=== PATIENT | female | born 1970 | race Two or more races ===

== ENCOUNTER 2017-12-29 12:00 | Inpatient (IN) | payer OTHER ==
[~2017-12-29] VITALS: Ht 180.3 cm; Wt 92.1 kg
--- NOTE | 2017-12-29 12:43 | NUR ---
sandy from heart to heart. patient c/o increased sob for 3 weeks and swelling in ble. said she was at [facility] for about a month and d/c'd to heart to heart recently. room air saturation 99% refusing nasal cannula. at bedside. patient hd since 1 year with right cw hd cath present.
[2017-12-29] MEDS ORDERED: IPRATROPIUM NEB FS 0.5 MG/2.5 ML AMPUL.NEB NEB ONE (13:00)
[2017-12-29] MEDS ORDERED: ALBUTEROL FS 2.5 MG/3 ML VIAL.NEB NEB ONE (13:00)
--- NOTE | 2017-12-29 13:08 | NUR ---
PT REFUSING OXYGEN. ROOM AIR STABLE 98%
--- NOTE | 2017-12-29 13:15 | NUR ---
multiple attempts for saline lock iv. patient states "i need a picc line for iv" as she is a hard stick
[2017-12-29 13:37] LABS: BASOPHILS % (AUTO) 0.5 % (0.0-2.0); EOSINOPHILS % (AUTO) 4.2 % (0.0-6.0); HEMATOCRIT 33 % (33-45); HEMOGLOBIN 10.8 g/dL (11.5-14.8); LYMPHOCYTES # (AUTO) 2.2 /CMM (0.8-4.8); LYMPHOCYTES % (AUTO) 40.9 % (20.0-44.0); MEAN CORPUSCULAR HGB CONC 33 g/dl (31.0-36.0); MEAN CORPUSCULAR VOLUME 96 fL (82-100); MONOCYTES # (AUTO) 0.4 /CMM (0.1-1.30); MONOCYTES % (AUTO) 6.9 % (2.0-12.0); NEUTROPHILS # (AUTO) 2.6 /CMM (1.8-8.9); NEUTROPHILS % (AUTO) 47.5 % (43.0-81.0); PLATELET COUNT (AUTO) 151 /CMM (150-450); RDW COEFFICIENT OF VARIATION 20.5 (11.5-15.0); RED BLOOD CELL COUNT(AUTO) 3.47 MIL/uL (4.0-5.2); WHITE BLOOD COUNT (AUTO) 5.4 K/uL (4.3-11.0)
[2017-12-29 13:42] LABS: CALCIUM, SERUM 9.7 mg/dL (8.5-10.1); CREATININE 4.4 mg/dL (0.6-1.3); POTASSIUM 4.3 mmol/L (3.5-5.1)
--- NOTE | 2017-12-29 13:44 | NUR ---
aware of patient htn. per patient hd schedule m/w/f
[2017-12-29 13:48] LABS: INR 0.99 (0.85-1.15)
[2017-12-29 13:53] LABS: TROPONIN I 0.648 ng/mL (0.00-0.056)
[2017-12-29 13:55] LABS: ALBUMIN 2.4 g/dL (3.4-5.0); BILIRUBIN,DIRECT 0.1 mg/dL (0.0-0.2); BILIRUBIN,TOTAL 0.4 mg/dL (0.2-1.0); TOTAL PROTEIN, SERUM 8.4 g/dL (6.4-8.2)
--- NOTE | 2017-12-29 13:56 | NUR ---
troponin 0/648 relayed to
--- NOTE | 2017-12-29 14:06 | NUR ---
RT PT IS AWAKE AND ALERT. PT IS REFUSING HHN TX DESPITE BEING EDUCATED ON BENEFITS OF THE RX. PT IS AWARE AND STILL REFUSING HHN TX. NO RESPIRATORY DISTRESS NOTED AT THIS TIME. NADIA SR NOTIFIED AND AWARE.
--- NOTE | 2017-12-29 14:48 | NUR ---
PT IS ASSIGNED TO [facility]#: [id number]
[2017-12-29] MEDS ORDERED: ASPI-1169 PO (15:39)
[2017-12-29] MEDS ORDERED: CALC667C6 PO (15:39)
[2017-12-29] MEDS ORDERED: FOLI0.8T2 PO (15:39)
[2017-12-29] MEDS ORDERED: VITA1TAB18 PO (15:39)
[2017-12-29] MEDS ORDERED: ATOR10TA PO (15:40)
[2017-12-29] MEDS ORDERED: RALT400T PO (15:40)
[2017-12-29] MEDS ORDERED: LACT1CAP69 PO (15:40)
[2017-12-29] MEDS ORDERED: CARB200T PO (15:40)
[2017-12-29] MEDS ORDERED: ISOS30TA6 PO (15:40)
[2017-12-29] MEDS ORDERED: ONDA4TAB10 PO (15:40)
[2017-12-29] MEDS ORDERED: DOCU250C14 PO (15:40)
[2017-12-29] MEDS ORDERED: TRAM50TA2 PO (15:40)
[2017-12-29] MEDS ORDERED: LAMI150T PO (15:40)
[2017-12-29] MEDS ORDERED: INSU100V27 SQ (15:40)
[2017-12-29] MEDS ORDERED: IPRA3AMP23 IH (15:40)
[2017-12-29] MEDS ORDERED: DICL50TA9 PO (15:40)
[2017-12-29] MEDS ORDERED: SENN-167 PO (15:40)
[2017-12-29] MEDS ORDERED: CLON0.1T PO (15:40)
[2017-12-29] MEDS ORDERED: BENA10TA9 PO (15:40)
[2017-12-29] MEDS ORDERED: OMEP20CA10 PO (15:40)
[2017-12-29] MEDS ORDERED: ABAC300T PO (15:40)
[2017-12-29] MEDS ORDERED: LEVO50TA8 PO (15:40)
[2017-12-29] MEDS ORDERED: HYDR-552 PO (15:40)
[2017-12-29] MEDS ORDERED: BLOO-668 IN (15:40)
[2017-12-29] MEDS ORDERED: LACT1TAB13 PO (15:40)
[2017-12-29] MEDS ORDERED: LEVE500T9 PO (15:40)
--- NOTE | 2017-12-29 17:37 | NUR ---
REPORT GIVEN TO NADIA PALUMBO FOR TELE 101.
--- NOTE | 2017-12-29 17:47 | NUR ---
RECEIVED REPORT FROM ER NURSE REMBERTO FOR NEW ADMISSION
--- NOTE | 2017-12-29 18:26 | NUR ---
RN BECKY NURSE RECEIVED PATIENT ON UNIT @ [address] ED[address] JO NOTIFIED.
[2017-12-29 18:39] VITALS: BP 160/101
--- NOTE | 2017-12-29 18:42 | NUR ---
RN BECKY NOTES RECEIVED PATIENT FROM ED 47 YR OLD FEMALE FROM HEART TO HEART C/O SOB X 3WEEKS. PATIENT HAS LONG HX ADMITTING DIAGNOSES OF PE. PATIENT A/O X3 NO SIGNS OR SYMPTOMS OF RESPIRATORY DISTRESS ON ROOM REFUSES OXYGEN OR ACUTE PAIN. ED UNABLE TO ACCESS AN IV LINE PATIENT STATES SHE IS A HARD STICK AND USUALLY GETS A PICC NO IV MEDICATION NEEDED A THIS TIME. SKIN DRY (L) FOOT WOUND DRESSED CLEAN WITH NO DRAINAGE NOTED. (R) CHEST JEREMIAH CATH WITH DRESSING INTACT. LAST HD 12/28 OUTPUT UNKNWN.B/P TAKEN MANUALLY 160/101 PATIENT IS TEARFUL AND STATES SHE DOES NOT WANT TO BE HERE BUT COOPERATIVE. DR. JO AWARE OF PATIENT ARRIVAL AND WILL BE ON THE UNIT IN 30 MINUTES TO ENDORSE ORDERS. BED IN LOW POSITION ALL SAFETY PRECAUTIONS IN PLACE. CALL LIGHT WITHIN REACH WILL ENDORSE TO [facility]
--- NOTE | 2017-12-29 19:24 | NUR ---
RN BECKY CLOSING NOTES END OF SHIFT REPORT GIVEN TO
[2017-12-29] MEDS ORDERED: ONDANSETRON HCL/PF 4 MG/2 ML VIAL IVP PRN (19:30)
[2017-12-29] MEDS ORDERED: ZOLPIDEM TARTRATE 5 MG TABLET PO PRN (19:30)
[2017-12-29] MEDS ORDERED: ACETAMINOPHEN 325 MG TABLET PO PRN (19:30)
[2017-12-29] MEDS ORDERED: DEXTROSE 50%-WATER 50 ML DISP.SYRIN IV PRN (19:30)
[2017-12-29] MEDS ORDERED: HYDROCODONE/APAP 5/325MG 1 EACH TABLET PO PRN (19:30)
[2017-12-29 20:00] VITALS: BP 160/101
[2017-12-29] MEDS ORDERED: BUMETANIDE INJ 0.25 MG/ML VIAL IV ONE (20:30)
--- NOTE | 2017-12-29 20:34 | NUR ---
PT ADVISED TO DO ECHO TEST LATER SINCE SHE CANT LIE DOWN IN BED DUE TO BREATHING DIFFICULTY.
[2017-12-29] MEDS ORDERED: HEPARIN SODIUM, PORCINE 5000 UNITS/1 ML VIAL SQ SCH (21:00)
[2017-12-29] MEDS: HEPARIN SODIUM, PORCINE 5000 UNITS/1 ML VIAL SQ SCH (21:58)
--- NOTE | 2017-12-29 22:05 | NUR ---
INITIAL ECHO FINDINGS SHOWED EF 35%~, SMALL PER. EFFUSION, W/ MODERATE PULM HTN 55mmHg. ADVISED NADIA NOGUERA OF PRELIMINARY RESULTS.
[2017-12-29] MEDS: BLOOD SUGAR DIAGNOSTIC 1 EACH STRIP IN SCH (22:38)
[2017-12-29] MEDS: INSULIN REGULAR, HUMAN 100 UNIT/ML 3 ML VIAL SQ PRN (22:39)
[2017-12-30] VITALS: BP 175/90
--- NOTE | 2017-12-30 02:54 | NUR ---
RN NOTES NOTIFIED DR YARED STALLINGS REGARDING NEW TROPONIN RESULT OF 0.657 WITH NO NEW ORDERS AT THIS TIME
[2017-12-30 04:00] VITALS: BP 165/90
--- NOTE | 2017-12-30 07:51 | NUR ---
RN NOTE: PATIENT RECEIVED ALERT AWAKE ORIENTED X 3. ON 4LPM O2 VIA MASK, NO BREATHING DISTRESS NOTED. NOTED C/O PAIN BILATERAL LOWER LEG/FEET, OFFERED NORCO, REFUSED FOR NOW, WILL CONTINUE TO ASSESS. SAFETY MEASURES OBSERVED. ENCOURAGE TO USE CALL LIGHT FOR ASSISTANCE. WILL CONTINUE TO MONITOR.
[2017-12-30 08:00] VITALS: BP_SYST 184; BP_DIAS 108; BP_DIAS 99
[2017-12-30] MEDS: BLOOD SUGAR DIAGNOSTIC 1 EACH STRIP IN SCH ×4 (08:28→21:52)
[2017-12-30] MEDS: HEPARIN SODIUM, PORCINE 5000 UNITS/1 ML VIAL SQ SCH ×2 (08:30→21:00)
[2017-12-30] MEDS: INSULIN REGULAR, HUMAN 100 UNIT/ML 3 ML VIAL SQ PRN ×3 (08:31→21:59)
[2017-12-30] MEDS ORDERED: AMLODIPINE BESYLATE 5 MG TABLET PO ONE (09:00)
[2017-12-30] MEDS: CARVEDILOL 6.25 MG TABLET PO SCH ×2 (10:06→21:49)
[2017-12-30] MEDS: hydrALAZINE HCL 50 MG TABLET PO SCH ×3 (10:06→17:25)
[2017-12-30] MEDS: ASPIRIN 81 MG TAB.CHEW PO SCH (10:06)
[2017-12-30] MEDS: NITROGLYCERIN 30 GM TUBE TP SCH ×2 (10:07→21:52)
[2017-12-30] MEDS: DICLOFENAC SODIUM 25 MG TABLET.DR PO SCH ×2 (11:00→17:26)
[2017-12-30] MEDS: LACTOBACILLUS RHAMNOSUS GG 1 EACH CAP.SPRINK PO SCH ×2 (11:00→17:25)
[2017-12-30] MEDS ORDERED: TRAMADOL HCL 50 MG TABLET PO PRN (11:00)
[2017-12-30] MEDS: SENNOSIDES 8.6 MG TABLET PO SCH ×2 (11:00→17:26)
[2017-12-30] MEDS ORDERED: ISOSORBIDE MONONITRATE (30MG) 30 MG TAB.SR.24H PO SCH (11:00)
[2017-12-30] MEDS: LEVETIRACETAM SOL (5 ML) 100 MG/ML UDC PO SCH ×3 (11:00→21:00)
[2017-12-30] MEDS: DOCUSATE SODIUM 250 MG CAPSULE PO SCH ×2 (11:00→17:23)
[2017-12-30] MEDS ORDERED: CLONIDINE HCL 0.1 MG TABLET PO PRN (11:00)
[2017-12-30] MEDS: BENAZEPRIL HCL 10 MG TABLET PO SCH (11:00)
[2017-12-30] MEDS: CARBAMAZEPINE 200 MG TABLET PO SCH ×2 (11:00→22:10)
[2017-12-30] MEDS: PANTOPRAZOLE 40 MG TABLET.DR PO SCH (11:00)
[2017-12-30 12:00] VITALS: BP 137/91
[2017-12-30] MEDS: VIT B CMPLX 3/FA/VIT C/BIOTIN 1 TAB TABLET PO SCH (12:41)
[2017-12-30] MEDS: CALCIUM ACETATE 667 MG TABLET PO SCH ×3 (12:43→17:23)
[2017-12-30] MEDS: LAMIVUDINE (150MG) 150 MG TABLET PO SCH (12:44)
[2017-12-30] MEDS: ABACAVIR SULFATE 300 MG TABLET PO SCH ×2 (12:44→17:23)
[2017-12-30] MEDS: RALTEGRAVIR POTASSIUM 400 MG TABLET PO SCH ×2 (12:45→17:00)
[2017-12-30 13:36] LABS: CALCIUM, SERUM 9.5 mg/dL (8.5-10.1); CREATININE 5.1 mg/dL (0.6-1.3); MAGNESIUM 2.3 mg/dL (1.8-2.4); PHOSPHORUS 4.8 mg/dL (2.5-4.9); POTASSIUM 4.8 mmol/L (3.5-5.1)
--- NOTE | 2017-12-30 15:45 | NUR ---
RN NOTE: PATIENT ENDORSED TO JAREN RN DUE TO ASSIGNMENT CHANGE. REPORT GIVEN AT BEDSIDE.
[2017-12-30 16:00] VITALS: BP 159/94
--- NOTE | 2017-12-30 16:00 | NUR ---
RN NOTES PATIENT S/P DIALYSIS. ABLE TO TOLERATE THE PROCEDURE WELL. NO SIGN OF DISTRESS NOTED. 3000 LITER TAKEN OUT OF THE PATIENT. BP AT 132/78, HR AT 69 TEMP AT 98.0. NO SIGN OF RESPIRATORY DISTRESS NOTED
[2017-12-30 18:04] LABS: HEMATOCRIT 32 % (33-45); HEMOGLOBIN 9.8 g/dL (11.5-14.8); MEAN CORPUSCULAR HGB CONC 31 g/dl (31.0-36.0); MEAN CORPUSCULAR VOLUME 98 fL (82-100); PLATELET COUNT (AUTO) 113 /CMM (150-450); RDW COEFFICIENT OF VARIATION 21.6 (11.5-15.0); RED BLOOD CELL COUNT(AUTO) 3.21 MIL/uL (4.0-5.2)
[2017-12-30 18:37] LABS: BAND % (MANUAL) 11 % (0.0-5.0); LYMPHOCYTES % (MANUAL) 23 % (16-48); MONOCYTES % (MANUAL) 6 % (0-11.0); NEUTROPHILS % (MANUAL) 60 (42-76)
--- NOTE | 2017-12-30 19:35 | NUR ---
RN NOTES ENDORSED PATIENT FOR CONTINUITY OF CARE. PATIENT REMAINED STABLE FOR THE ENTIRE SHIFT. NO ACUTE CHANGES NOTED. ALL NURSING NEEDS ATTENDED AND MET. CALL LIGHT WITHIN REACH AT ALL TIME. SAFETY MEASURES KEPT IN PLACE Addendum: 12/31/17 at 0915 by JAREN RON RN RN NOTES RALTEGLAVIR 400 MG WAS NOT ADMINISTERED TO THE PATIENT DUE TO UNAVAILABILITY AT THE PHARMACY.
[2017-12-30 20:00] VITALS: BP_SYST 158; BP_SYST 159; BP_DIAS 84; BP_DIAS 94
--- NOTE | 2017-12-30 20:00 | NUR ---
RN INITIAL NOTES RECEIVED PT RESTING IN BED. A & 0X3. MULTIPLE SKIN WOUNDS. RIGHT CW JEREMIAH CATH FOR HD. ENDORSED THAT PT WOULD POSSIBLE BE RECEIVING HD TOMORROW. PT STATES SHE WILL BE DISCHARGED TOMORROW OR LEAVING AMA. ALL SAFETY PRECAUTIONS TAKEN. WILL CONT TO MONITOR.
[2017-12-30] MEDS ORDERED: ATORVASTATIN 10 MG TABLET PO SCH (22:00)
[2017-12-31 04:00] VITALS: BP 152/85
--- NOTE | 2017-12-31 06:11 | NUR ---
RN CLOSING NOTES PATIENT REMAINED STABLE FOR THE ENTIRE SHIFT. NO ACUTE CHANGES NOTED. ALL NEEDS MET. ALL MEDICATION GIVEN. CALL LIGHT WITHIN REACH AT ALL TIME. SAFETY MEASURES KEPT IN PLACE. WILL ENDORSE TO AM SHIFT.
[2017-12-31 06:24] LABS: EOSINOPHILS % (AUTO) 4.2 % (0.0-6.0); HEMATOCRIT 28 % (33-45); HEMOGLOBIN 9.1 g/dL (11.5-14.8); LYMPHOCYTES % (AUTO) 39.7 % (20.0-44.0); MEAN CORPUSCULAR HGB CONC 32 g/dl (31.0-36.0); MEAN CORPUSCULAR VOLUME 98 fL (82-100); MONOCYTES # (AUTO) 0.5 /CMM (0.1-1.30); MONOCYTES % (AUTO) 10.3 % (2.0-12.0); NEUTROPHILS # (AUTO) 2.3 /CMM (1.8-8.9); NEUTROPHILS % (AUTO) 45.8 % (43.0-81.0); PLATELET COUNT (AUTO) 97 /CMM (150-450); RDW COEFFICIENT OF VARIATION 21.3 (11.5-15.0); RED BLOOD CELL COUNT(AUTO) 2.88 MIL/uL (4.0-5.2)
[2017-12-31 06:38] LABS: CALCIUM, SERUM 8.7 mg/dL (8.5-10.1); CREATININE 4.9 mg/dL (0.6-1.3); MAGNESIUM 2.2 mg/dL (1.8-2.4); PHOSPHORUS 4.8 mg/dL (2.5-4.9); POTASSIUM 4.8 mmol/L (3.5-5.1)
--- NOTE | 2017-12-31 07:00 | NUR ---
MS RN INITIAL NOTES PT SITTING ON SIDE OF BED. A/OX4. PT IS ON RA SAT AT 92%. PT IS REFUSING TO USE SUPP OXYGEN. DOES NOT APPEAR TO BE IN DISTRESS. NO COMPLAINT OF PAIN. PT IS INSISTENT ON LEAVING HOSPITAL THIS MORNING. SAFETY PRECAUTIONS IN PLACE. CALL LIGHT IN REACH. WILL CONT TO MONITOR.
[2017-12-31] MEDS ORDERED: LEVOTHYROXINE SODIUM 50 MCG TABLET PO SCH (07:30)
[2017-12-31 07:58] LABS: BAND % (MANUAL) 2 % (0.0-5.0); EOSINOPHILS % (MANUAL) 5 % (0-4); LYMPHOCYTES % (MANUAL) 42 % (16-48); MONOCYTES % (MANUAL) 6 % (0-11.0); NEUTROPHILS % (MANUAL) 45 (42-76)
[2017-12-31 08:00] VITALS: BP 156/70
[2017-12-31] MEDS: PANTOPRAZOLE 40 MG TABLET.DR PO SCH (08:02)
[2017-12-31] MEDS: CALCIUM ACETATE 667 MG TABLET PO SCH ×2 (08:02→12:04)
[2017-12-31] MEDS: BLOOD SUGAR DIAGNOSTIC 1 EACH STRIP IN SCH ×2 (08:54→12:08)
[2017-12-31] MEDS ORDERED: ASPIRIN 81 MG TAB.CHEW PO SCH (09:00)
[2017-12-31] MEDS: HEPARIN SODIUM, PORCINE 5000 UNITS/1 ML VIAL SQ SCH (09:00)
[2017-12-31] MEDS: CARVEDILOL 6.25 MG TABLET PO SCH (09:00)
[2017-12-31] MEDS: LEVETIRACETAM SOL (5 ML) 100 MG/ML UDC PO SCH (09:00)
[2017-12-31] MEDS: BENAZEPRIL HCL 10 MG TABLET PO SCH (09:00)
--- NOTE | 2017-12-31 09:00 | NUR ---
MS RN NOTES PT REFUSED TO TAKE MEDS. STATED "I WILL LET YOU KNOW WHEN I'M READY TO TAKE IT". PLACED MEDS IN CASSETTE.
--- NOTE | 2017-12-31 09:00 | NUR ---
MS RN NOTES PT IS HAVING DIALYSIS TODAY. HELD BP MEDS.
[2017-12-31] MEDS: RALTEGRAVIR POTASSIUM 400 MG TABLET PO SCH (09:09)
[2017-12-31] MEDS: VIT B CMPLX 3/FA/VIT C/BIOTIN 1 TAB TABLET PO SCH (09:11)
[2017-12-31] MEDS: DICLOFENAC SODIUM 25 MG TABLET.DR PO SCH (09:11)
[2017-12-31] MEDS: LACTOBACILLUS RHAMNOSUS GG 1 EACH CAP.SPRINK PO SCH (09:12)
[2017-12-31] MEDS: ASPIRIN 81 MG TAB.CHEW PO SCH (09:12)
[2017-12-31] MEDS: DOCUSATE SODIUM 250 MG CAPSULE PO SCH (09:13)
[2017-12-31] MEDS: INSULIN REGULAR, HUMAN 100 UNIT/ML 3 ML VIAL SQ PRN ×2 (09:16→12:18)
[2017-12-31] MEDS: SENNOSIDES 8.6 MG TABLET PO SCH (09:17)
[2017-12-31] MEDS: LAMIVUDINE (150MG) 150 MG TABLET PO SCH (09:22)
[2017-12-31] MEDS: ABACAVIR SULFATE 300 MG TABLET PO SCH (09:23)
--- NOTE | 2017-12-31 09:25 | NUR ---
WOUND CARE CONSULT: PT PRESENTS WITH SACRAL SCARRING, PERINEAL/INNER THIGH EDEMA BLISTERS AND BILATERAL HEEL ESCHARS, PRESENT ON ADMISSION. RECOMMEND DPM CONSULT. RECOMMENDATIONS MADE FOR SKIN PROTECTION AND WOUND CARE. DISCUSSED WITH NURSING STAFF. WILL SEE PRN. ESCAMILLA IN AGREEMENT WITH PLAN OF CARE. Addendum: 12/31/17 at 0927 by WADE CHAPPELL WNDNU Amended: Links added.
--- NOTE | 2017-12-31 09:26 | NUR ---
MS RN NOTES OFFERED PT AM MEDS. PT STATED: "I WON'T TAKE THE MEDS UNTIL YOU TALK TO THE DOCTOR ABOUT GOING HOME".
[2017-12-31] MEDS ORDERED: ISOSORBIDE DINITRATE (20MG) 20 MG TABLET PO SCH (09:30)
[2017-12-31] MEDS: CARBAMAZEPINE 200 MG TABLET PO SCH (11:04)
--- NOTE | 2017-12-31 11:35 | NUR ---
MS RN NOTES PT REFUSED DIALYSIS. MORNING BP MEDS WERE NOT GIVEN DUE TO HD APPT TODAY. PT'S BP NOW 164/94. IS WILLING TO TAKE BP MEDS NOW.
[2017-12-31 12:00] VITALS: BP 164/94
[2017-12-31 12:04] VITALS: BP 164/94
[2017-12-31] MEDS ORDERED: hydrALAZINE HCL 50 MG TABLET PO SCH (13:00)
[2017-12-31] MEDS ORDERED: ASPI-1169 PO (13:11)
[2017-12-31] MEDS ORDERED: CARV6.252 PO (13:11)
[2017-12-31] MEDS ORDERED: ISOS20TA8 PO (13:11)
[2017-12-31] MEDS ORDERED: HYDR-4077 PO (13:11)
--- NOTE | 2017-12-31 17:00 | NUR ---
MS RN D/C NOTES PT LEFT WITH AMBULANCE CREW AND . PT'S IV AND ID BAND REMOVED. BELONGINGS LIST AND DISCHARGE INSTRUCTIONS SIGNED FOR. PT GIVEN NEW PRESCRIPTIONS LIST AND DISCHARGE INSTRUCTIONS.
== END 2017-12-31 17:00 | DRG 194 ==
LOC: ER 12:03 → TELE 16:48 → TELE1 18:24 → MEDSG1 12-30 14:23
PROVIDERS: ADMIT Nurse Practitioner Acute Care; ATTEND Nurse Practitioner Acute Care
DX: I13.2 Hypertensive heart and chronic kidney disease with heart failure and with stage 5 chronic kidney disease, or end stage renal disease (principal); I21.A1 Myocardial infarction type 2; E44.0 Moderate protein-calorie malnutrition; R53.2 Functional quadriplegia; E11.21 Type 2 diabetes mellitus with diabetic nephropathy; N18.6 End stage renal disease; E11.22 Type 2 diabetes mellitus with diabetic chronic kidney disease; Z99.2 Dependence on renal dialysis; D63.8 Anemia in other chronic diseases classified elsewhere; S91.302A Unspecified open wound, left foot, initial encounter; S91.301A Unspecified open wound, right foot, initial encounter; X58.XXXA Exposure to other specified factors, initial encounter; Y92.199 Unspecified place in other specified residential institution as the place of occurrence of the external cause; E03.9 Hypothyroidism, unspecified; E78.5 Hyperlipidemia, unspecified; Z79.4 Long term (current) use of insulin; Z79.82 Long term (current) use of aspirin; Z79.899 Other long term (current) drug therapy; Z88.2 Allergy status to sulfonamides
CPT/HCPCS: 36415; 71045-TC; 80048-TC; 80061-TC; 80076-TC; 82962-TC; 83735-TC; 83880; 84100-TC; 84484-TC; 85025-TC; 85730-TC; 93307-TC; A6253; J1644; J1815; J1953; J3490; Z7610